=== PATIENT | male | born 2000 | race African-American/Black ===

== ENCOUNTER 2024-09-12 08:28 | Emergency (ER) | payer OTHER ==
[~2024-09-12] VITALS: Ht 175.3 cm; Wt 112.6 kg
[2024-09-12] MEDS: ONDANSETRON 4MG ORAL DISINTEGRATING TAB PO ONE (09:40)
[2024-09-12] MEDS ORDERED: ONDA-282 PO (11:19)
[2024-09-12] MEDS ORDERED: ACETAMINOPHEN 325 MG TAB PO ONE (11:20)
[2024-09-12 11:27] VITALS: BP 148/88; TEMP 98.8; O2SAT 97
== END 2024-09-12 11:28 | disposition home or self-care (01) ==
LOC: M ED 08:28
DX: J00 Acute nasopharyngitis [common cold] (principal); B34.9 Viral infection, unspecified; Z79.899 Other long term (current) drug therapy